=== PATIENT | female | born 1935 | race Caucasian/White ===

== ENCOUNTER → 2016-09-30 | Outpatient (REF) | payer MEDICARE ==
[~2016-09-30] MED LIST: BISO5TAB5 PO; DULE100A IN; GLUCTAB6 PO; VITA500C10 PO
== END ==
LOC: M SMT 13:02
PROVIDERS: ATTEND Urology
DX: Z01.818 Encounter for other preprocedural examination (principal); C67.9 Malignant neoplasm of bladder, unspecified

== ENCOUNTER → 2016-10-24 | Day surgery (SDC) | payer MEDICARE ==
[~2016-10-24] VITALS: Ht 165.1 cm; Wt 63.5 kg
[~2016-10-24] MED LIST changes: +ACETAMINOPHEN TAB 650MG DOSE (2X325MG) PO PRN; +LIDOCAINE 2% INJ 100 MG/5 ML SDV (FOR ANES.) As Ordered ONE; +LR 1,000 ML IV ONE; +LR 1,000 ML IV SCH; +MIDAZOLAM INJ 2 MG/2 ML VIAL (J2250) As Ordered ONE; +ONDANSETRON 4MG/2ML VIAL (J2405) As Ordered ONE; +ONDANSETRON 4MG/2ML VIAL (J2405) IV PRN; +PERCOCET 5MG/325MG TAB PO PRN; +PROPOFOL 200 MG/20 ML VIAL As Ordered ONE; +ROCURONIUM BROMIDE 50 MG/5 ML VIAL As Ordered ONE; +SCOPOLAMINE 1.5 MG TRANSDERMAL As Ordered ONE; +SCOPOLAMINE 1.5 MG TRANSDERMAL TOP ONE; +SUGAMMADEX SODIUM 500 MG/5 ML VIAL (BRIDION) As Ordered ONE; +fentaNYL 100 MCG/2 ML INJECTION (J3010) IV PRN; +fentaNYL 250 MCG/5 ML INJECTION (J3010) As Ordered ONE
[2016-10-24 15:30] VITALS: BP 131/71
--- NOTE | 2016-10-25 15:05 | RO ---
DATE OF PROCEDURE: 10/24/2016 PREPROCEDURE DIAGNOSIS: Bladder tumor. POSTPROCEDURE DIAGNOSIS: Bladder tumor. PROCEDURE: Cystoscopy, transurethral resection of bladder tumor (less than 2 cm). SURGEON: Ciro Constantino MD [facility] [employer] OPERATOR: None. ANESTHESIA: General. OPERATIVE INDICATIONS: This is an 80-year-old female with a history of bladder cancer who was recently found to have what appeared to be a bladder tumor recurrence on left bladder wall. It was recommended that she be brought to the operating room today for the above listed procedure. DESCRIPTION OF PROCEDURE: The patient was brought to the operating room and general anesthesia was induced. Prophylactic antibiotics were infused. She was then placed in the dorsal lithotomy position and prepped and draped in the usual sterile fashion. A rigid cystoscope was inserted into the urethral meatus and advanced into the bladder. Once it was in the bladder, an approximately 1 cm size lesion was seen in the posterior left bladder wall concerning for possible tumor. We then resected this tumor and removed it and sent it for pathologic analysis. The base was then cauterized using the coagulation current. At the end of the procedure fluid drained clear. This marked the conclusion of the procedure. The resectoscope was then removed and the patient was taken out of the dorsal lithotomy position, awakened from anesthesia and transported to the recovery room in stable condition. ESTIMATED BLOOD LOSS: 0 mL COMPLICATIONS: None. SPECIMENS: Bladder tumor. PLAN: The patient will followup in the clinic in a week or two for pathology results. RILEY
== END | disposition home or self-care (01) ==
LOC: M SDC 08:38
PROVIDERS: ATTEND Urology
DX: N28.9 Disorder of kidney and ureter, unspecified (principal); J44.9 Chronic obstructive pulmonary disease, unspecified; Z79.899 Other long term (current) drug therapy; Z85.51 Personal history of malignant neoplasm of bladder
CPT/HCPCS: 52234; 88305; J0690; J2250; J2405; J3010

== ENCOUNTER → 2017-02-03 | Outpatient (REF) | payer MEDICARE ==
[~2017-02-03] MED LIST changes: -ACETAMINOPHEN TAB 650MG DOSE (2X325MG) PO PRN; -LIDOCAINE 2% INJ 100 MG/5 ML SDV (FOR ANES.) As Ordered ONE; -LR 1,000 ML IV ONE; -LR 1,000 ML IV SCH; -MIDAZOLAM INJ 2 MG/2 ML VIAL (J2250) As Ordered ONE; -ONDANSETRON 4MG/2ML VIAL (J2405) As Ordered ONE; -ONDANSETRON 4MG/2ML VIAL (J2405) IV PRN; -PERCOCET 5MG/325MG TAB PO PRN; -PROPOFOL 200 MG/20 ML VIAL As Ordered ONE; -ROCURONIUM BROMIDE 50 MG/5 ML VIAL As Ordered ONE; -SCOPOLAMINE 1.5 MG TRANSDERMAL As Ordered ONE; -SCOPOLAMINE 1.5 MG TRANSDERMAL TOP ONE; -SUGAMMADEX SODIUM 500 MG/5 ML VIAL (BRIDION) As Ordered ONE; -fentaNYL 100 MCG/2 ML INJECTION (J3010) IV PRN; -fentaNYL 250 MCG/5 ML INJECTION (J3010) As Ordered ONE
== END ==
LOC: M SMT 17:26
PROVIDERS: ATTEND Urology
DX: C67.9 Malignant neoplasm of bladder, unspecified (principal)

== ENCOUNTER → 2017-06-02 | Outpatient (REF) | payer MEDICARE | LOC: M SMT 13:17 | PROVIDERS: ATTEND Urology | DX: Z85.51 Personal history of malignant neoplasm of bladder (principal) ==

== ENCOUNTER → 2017-06-11 | Outpatient (REF) | payer MEDICARE | LOC: M LAB REF 14:43 | PROVIDERS: ATTEND Surgery | DX: C44.329 Squamous cell carcinoma of skin of other parts of face (principal) ==

== ENCOUNTER → 2017-09-15 | Outpatient (REF) | payer MEDICARE | LOC: M SMT 13:17 | DX: C67.9 Malignant neoplasm of bladder, unspecified (principal) | CPT/HCPCS: 88108 ==

== ENCOUNTER → 2018-01-19 | Outpatient (REF) | payer MEDICARE | LOC: M SMT 13:08 | DX: C67.9 Malignant neoplasm of bladder, unspecified (principal) | CPT/HCPCS: 88108 ==

== ENCOUNTER → 2018-07-26 | Outpatient (REF) | payer MEDICARE | LOC: M SMT 13:05 | PROVIDERS: ATTEND Urology | DX: C67.9 Malignant neoplasm of bladder, unspecified (principal) ==

== ENCOUNTER → 2019-01-24 | Outpatient (REF) | payer MEDICARE | LOC: M SMT 13:09 | PROVIDERS: ATTEND Urology | DX: C67.9 Malignant neoplasm of bladder, unspecified (principal) ==

== ENCOUNTER → 2019-11-22 | Outpatient (CLI) | payer MEDICARE ==
[~2019-11-22] MED LIST changes: +BISO5TAB14 PO; -BISO5TAB5 PO
--- NOTE | 2019-11-23 09:45 | REP ---
PET/CT: HISTORY: Diagnosing abnormal lung field finding. COMPARISONS: CT study chest from [facility] dated November 16, 2019 reports a left lower lobe opacity. PET/CT was recommended. TECHNIQUE: 45 minutes following the intravenous injection of a 7.89 mCi dose of F-18 FDG, three-dimensional PET scintigraphy is acquired from the skull base to the proximal thighs. Triplanar noncontrast CT scanning is acquired through the same anatomic range for attenuation correction, and image registration with scan parameters optimized to minimize radiation exposure to the patient. PET scintigraphy and CT datasets were fused and displayed on a workstation with multiplanar and projection display capability. PET/CT FINDINGS: There is mild arthritis associated uptake in the right manubrial clavicular articulation. Head and neck soft tissues are unremarkable. There is an elongate left lower lobe infrahilar pulmonary parenchymal opacity which is hypermetabolic. Maximum standard uptake value is 5.92. There is some linear hypermetabolic opacity tracking caudally from this area distally into the left lung base. This opacity demonstrates hypermetabolic activity as well, 4.76. No other abnormal intrathoracic hypermetabolic uptake. No mediastinal or hilar hypermetabolic uptake is seen. In the abdomen and pelvis, there is normal distribution of FDG tracer. No abnormal hypermetabolic uptake is seen in the abdomen or pelvis. IMPRESSION: Hypermetabolic uptake noted in the left infrahilar lower lobe pulmonary parenchymal opacity. Malignancy cannot be excluded. Consider histologic sampling. Electronically Signed by Yusuf Andrade MD 11/23/2019 11:44 A
== END ==
LOC: M PLARAD 07:31
PROVIDERS: ATTEND Family Medicine
DX: R91.8 Other nonspecific abnormal finding of lung field (principal)
CPT/HCPCS: 78815; A9552

== ENCOUNTER → 2020-02-01 | Outpatient (REF) | payer MEDICARE | LOC: M SMT 07:12 | PROVIDERS: ATTEND Urology | DX: R30.0 Dysuria (principal) ==

== ENCOUNTER → 2021-10-21 | Outpatient (CLI) | payer MEDICARE | LOC: M PLARAD 13:28 | PROVIDERS: ATTEND Radiology Radiation Oncology | DX: C34.32 Malignant neoplasm of lower lobe, left bronchus or lung (principal); J43.2 Centrilobular emphysema; Z90.2 Acquired absence of lung [part of]; I70.0 Atherosclerosis of aorta; I25.10 Atherosclerotic heart disease of native coronary artery without angina pectoris; J98.11 Atelectasis; R91.8 Other nonspecific abnormal finding of lung field | CPT/HCPCS: 78815; A9552 ==

== ENCOUNTER → 2022-09-01 | Outpatient (REF) | payer MEDICARE ==
[~2022-09-01] MED LIST changes: -DULE100A IN; -GLUCTAB6 PO; +GLUCTAB7 PO; +MOME13HF8 IN
== END ==
LOC: M SMT 13:12
PROVIDERS: ATTEND Urology
DX: N39.0 Urinary tract infection, site not specified (principal); Z85.51 Personal history of malignant neoplasm of bladder